=== PATIENT | female | born 1970 | race African-American/Black ===

== ENCOUNTER 2021-08-12 12:12 | Emergency (ER) | payer OTHER ==
[~2021-08-12] VITALS: Ht 160 cm; Wt 143.8 kg
[2021-08-12 12:15] VITALS: BP 143/78
[2021-08-12] MEDS ORDERED: NAPROSYN500 MG PO (12:27)
== END 2021-08-12 12:40 | disposition home or self-care (01) ==
LOC: ER 12:12
DX: M65.312 Trigger thumb, left thumb (principal)